=== PATIENT | female | born 1975 | race African-American/Black ===

== ENCOUNTER 2017-04-12 13:15 | Emergency (ER) | payer MEDICAID ==
[~2017-04-12] VITALS: Ht 167.6 cm; Wt 58.0 kg
[2017-04-12] MEDS ORDERED: METR250T PO (13:43)
[2017-04-12] MEDS ORDERED: ADVIL (13:43)
[2017-04-12 17:39] VITALS: BP 156/88
== END 2017-04-12 18:16 | disposition home or self-care (01) ==
LOC: ER 18:08
DX: M10.9 Gout, unspecified (principal)
CPT/HCPCS: 99283; Z7610